=== PATIENT | female | born 1960 ===

== ENCOUNTER 2016-12-15 20:34 | Emergency (ER) | payer MEDICARE ==
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
[2016-12-15] MEDS ORDERED: DOXYcycline CAP(*) 100 MG PO ONE (22:35)
--- NOTE | 2016-12-16 17:11 | UC ---
Progress - Progress Note Progress Note: unable to afford doxy keflex 500 qid e rxed
== END 2016-12-15 22:48 | disposition home or self-care (01) ==
LOC: UCEAST 20:34
DX: Z48.02 Encounter for removal of sutures (principal); L03.90 Cellulitis, unspecified
CPT/HCPCS: 99202; A9270-GY; G0463